=== PATIENT | female | born 1960 | race Caucasian/White ===

== ENCOUNTER 2020-10-22 07:02 | Day surgery (SDC) | payer OTHER ==
[~2020-10-22] VITALS: Ht 162.6 cm; Wt 114.8 kg
[~2020-10-22 07:02] MED LIST: ATROVENT H17 MCG/ACT IN; GABAPENTIN100 MG PO; IRON27 MG PO; LEVOTHYROXIN125 MCG PO; LISINOPRIL5 MG PO; MOTRIN400 MG/TAB PO; POTASSIUM CHLO10 MEQ PO; QVAR REDIH80 MCG/ACT; SIMVASTATIN10 MG PO; VENTOLIN HFA108 MCG; VITAMIN C500 M6 PO; VITAMIN D325 MCG PO; ZYRTEC10 MG PO
[2020-10-22 08:52] VITALS: BP 104/56
== END 2020-10-22 09:10 | disposition home or self-care (01) | DRG 951 ==
LOC: ENDO 07:02 → ORM 07:30 → ENDO 09:10
PROVIDERS: ATTEND Surgery
PROC: 0DJD8ZZ Inspection of Lower Intestinal Tract, Via Natural or Artificial Opening Endoscopic (ICD-10-PCS; principal; 2020-10-22)
DX: Z12.11 Encounter for screening for malignant neoplasm of colon (principal); K57.30 Diverticulosis of large intestine without perforation or abscess without bleeding; K64.8 Other hemorrhoids; E03.9 Hypothyroidism, unspecified; R73.03 Prediabetes; Z86.010 Personal history of colon polyps

== ENCOUNTER 2023-11-19 09:48 | Day surgery (SDC) | payer OTHER ==
[~2023-11-19] VITALS: Ht 162.6 cm; Wt 113.4 kg
[~2023-11-19 09:48] MED LIST changes: +BREO ELLIPTA 101 INH PO; +BUDESONID2 IN; +CEFDINIR300 MG PO; +DICYCLOMINE HCL20 MG PO; +METRONIDAZOLE500 MG PO; +MODAFINIL200 MG PO; +MOUNJARO10 MG IJ; +ZOFRAN4 MG/TAB PO
[2023-11-19] MEDS ORDERED: SODIUM CHLORIDE 0.9% 1,000 ML IV ONE (10:00)
[2023-11-19] MEDS ORDERED: FAMOTIDINE 10MG/ML 2ML SDV IV ONE (10:00)
[2023-11-19 11:41] VITALS: BP 112/78
[2023-11-19] MEDS ORDERED: LIDOCAINE HCL 2% 2ML SDV IV ONE (17:56)
[2023-11-19] MEDS ORDERED: PROPOFOL 200 MG/20 ML VIAL IV ONE (17:56)
[2023-11-19] MEDS ORDERED: GLYCOPYRROLATE 0.2 MG/ML IV ONE (17:56)
== END 2023-11-19 11:58 | disposition home or self-care (01) | DRG 392 ==
LOC: ENDO 09:48 → ORM 15:30 → ENDO 15:30
PROVIDERS: ATTEND Internal Medicine Gastroenterology
PROC: 0DBN8ZX Excision of Sigmoid Colon, Via Natural or Artificial Opening Endoscopic, Diagnostic (ICD-10-PCS; principal; 2023-11-19)
PROC: 0DB58ZX Excision of Esophagus, Via Natural or Artificial Opening Endoscopic, Diagnostic (ICD-10-PCS; 2023-11-19)
PROC: 0DB78ZX Excision of Stomach, Pylorus, Via Natural or Artificial Opening Endoscopic, Diagnostic (ICD-10-PCS; 2023-11-19)
DX: K21.00 Gastro-esophageal reflux disease with esophagitis, without bleeding (principal); K50.10 Crohn's disease of large intestine without complications; K90.41 Non-celiac gluten sensitivity; K29.50 Unspecified chronic gastritis without bleeding; K64.8 Other hemorrhoids; K57.30 Diverticulosis of large intestine without perforation or abscess without bleeding; Z86.0100 Personal history of colon polyps, unspecified